=== PATIENT | female | born 1990 | race Caucasian/White ===

== ENCOUNTER 2020-08-19 15:52 | Emergency (ER) | payer OTHER ==
[~2020-08-19] VITALS: Ht 157.5 cm; Wt 45.5 kg
[~2020-08-19 15:52] MED LIST: NOCURR
[2020-08-19 15:56] VITALS: BP 103/72
[2020-08-19] MEDS ORDERED: LACT1CAP65 PO (15:56)
== END 2020-08-19 17:24 | disposition home or self-care (01) ==
LOC: EMS 15:52
DX: Z20.828 Contact with and (suspected) exposure to other viral communicable diseases (principal)
CPT/HCPCS: 99283; U0003

== ENCOUNTER 2021-03-08 08:48 | Emergency (ER) | payer OTHER ==
[~2021-03-08] VITALS: Ht 157.5 cm; Wt 46.4 kg
[~2021-03-08 08:48] MED LIST changes: +LACT1CAP65 PO
[2021-03-08 10:57] LABS: EOSINOPHILS % (AUTO) 2.7 % (1.0-6.0); HEMATOCRIT 40.2 % (36-46); HEMOGLOBIN 12.9 g/dL (12.0-16.0); LYMPHOCYTES # (AUTO) 1.5 K/uL (1.0-4.8); MEAN CORPUSCULAR HEMOGLOBIN 30.5 pg (26.0-34.0); MEAN CORPUSCULAR HGB CONC 32.2 G/dL (31.0-37.0); MEAN CORPUSCULAR VOLUME 95 fL (80-100); MONOCYTES # (AUTO) 0.4 K/uL (0.1-1.0); MONOCYTES % (AUTO) 6.6 % (2.0-9.0); NEUTROPHILS # (AUTO) 3.6 K/uL (1.8-7.7); NEUTROPHILS % (AUTO) 63.7 % (40.0-70.0); PLATELET COUNT (AUTO) 228 K/uL (150-450); RED BLOOD CELL COUNT(AUTO) 4.24 MIL/uL (4.00-5.20); RED CELL DISTRIBUTION WIDTH 13.6 % (11.5-14.5)
[2021-03-08 11:07] LABS: COVID AG,FIA SOURCE NASOPHARYNGEAL
[2021-03-08 11:26] LABS: ANION GAP 7 mmol/L (8-16); CARBON DIOXIDE 28 mmol/L (22-29); CHLORIDE 105 mmol/L (98-107); GLUCOSE,RANDOM 93 mg/dL (70-110); POTASSIUM 4.3 mmol/L (3.5-5.1); SODIUM SERUM 140 mmol/L (136-145)
[2021-03-08 11:27] LABS: ALANINE AMINOTRANSFERASE 24 U/L (12-78); ALBUMIN 4.4 g/dL (3.4-5.0); ALKALINE PHOSPHATASE 41 U/L (46-116); ASPARTATE AMINOTRANSFERASE 19 U/L (15-37); BILIRUBIN,TOTAL 0.5 mg/dL (0.1-1.0); CALCIUM, TOTAL 9.1 mg/dL (8.8-10.5); CREATININE 0.69 mg/dL (0.60-1.30); GLOMERULAR FILTR. RATE CALC > 60 mL/min (>60); HCG,QUANTITATIVE < 1 mIU/mL (0-6); LIPASE 117 U/L (73-393); TOTAL PROTEIN, SERUM 7.6 g/dL (6.4-8.2); UREA NITROGEN, BLOOD 12 mg/dL (7-18)
[2021-03-08 12:25] VITALS: BP 97/57
== END 2021-03-08 12:42 | disposition home or self-care (01) ==
LOC: EMS 08:50
DX: F41.9 Anxiety disorder, unspecified (principal); M54.6 Pain in thoracic spine; R10.2 Pelvic and perineal pain; Z20.822 Contact with and (suspected) exposure to COVID-19
CPT/HCPCS: 71046; 80053; 83690; 84484; 84702; 85025; 85379; 93005; 99285; 36415-L1; 36415-TC